=== PATIENT | female | born 1955 | race Caucasian/White ===

== ENCOUNTER → 2017-06-19 | Outpatient (CLI) | payer BC ==
[~2017-06-19] MED LIST: ALBUTEROL0.09 MG/A3 IH; ASPI81EC86; CLARITIN D TAB1 TAB PO; FLONASE0.05 MG/AC NS; METROLOTION 5959 ML TP
== END ==
LOC: COL.RAD 13:13
DX: M79.644 Pain in right finger(s) (principal)
CPT/HCPCS: J3301; Q9967

== ENCOUNTER 2017-10-11 06:51 | Day surgery (SDC) | payer BC ==
[~2017-10-11] VITALS: Ht 154.9 cm; Wt 61.4 kg
[~2017-10-11 06:51] MED LIST changes: -ALBUTEROL0.09 MG/A3 IH; -FLONASE0.05 MG/AC NS; +FLONASEALLERGY NS; +PROAIR HFA0.09 MG/AC IH
[2017-10-11] MEDS ORDERED: LEXAPRO 10MG10 MG PO (07:33)
[2017-10-11] MEDS ORDERED: OSCAL 500 TAB500 MG PO (07:34)
[2017-10-11] MEDS ORDERED: VITAMIN D 400400 IU PO (07:34)
[2017-10-11 07:35] VITALS: BP 141/75; PULSE 100; TEMP 98.6
[2017-10-11 09:09] VITALS: BP 118/69; PULSE 82; TEMP 98.4
[2017-10-11 09:24] VITALS: BP 121/79; PULSE 78
[2017-10-11 09:39] VITALS: BP 126/71; PULSE 81
== END 2017-10-11 09:50 | disposition home or self-care (01) ==
LOC: SDCO 06:51
DX: Z12.11 Encounter for screening for malignant neoplasm of colon (principal); K63.5 Polyp of colon; K57.30 Diverticulosis of large intestine without perforation or abscess without bleeding; D50.9 Iron deficiency anemia, unspecified; J45.909 Unspecified asthma, uncomplicated; Z90.710 Acquired absence of both cervix and uterus; Z86.010 Personal history of colon polyps; Z80.0 Family history of malignant neoplasm of digestive organs
CPT/HCPCS: J2250; J2405; J3010; J7030

== ENCOUNTER → 2018-05-21 | Outpatient (CLI) | payer BC ==
[~2018-05-21] MED LIST changes: +LEXAPRO 10MG10 MG PO; +OSCAL 500 TAB500 MG PO; +VITAMIN D 400400 IU PO
== END ==
LOC: MC.RAD 13:20
DX: Z12.31 Encounter for screening mammogram for malignant neoplasm of breast (principal)

== ENCOUNTER → 2019-03-05 | Outpatient (CLI) | payer BC | LOC: COL.RAD 08:00 | DX: M18.9 Osteoarthritis of first carpometacarpal joint, unspecified (principal) | CPT/HCPCS: J3301; Q9967 ==

== ENCOUNTER → 2019-05-28 | Outpatient (CLI) | payer BC | LOC: MC.RAD 07:04 | DX: Z12.31 Encounter for screening mammogram for malignant neoplasm of breast (principal) ==

== ENCOUNTER → 2020-06-23 | Outpatient (CLI) | payer BC | LOC: MC.RAD 12:51 | DX: Z12.31 Encounter for screening mammogram for malignant neoplasm of breast (principal) ==

== ENCOUNTER 2021-04-28 08:15 | Outpatient (RCR) | payer OTHER | END 2021-04-28 08:32 | disposition home or self-care (01) | LOC: MKS.ESL.PT 08:15 | DX: H81.11 Benign paroxysmal vertigo, right ear (principal) ==

== ENCOUNTER → 2021-07-14 | Outpatient (CLI) | payer BC | LOC: MC.RAD 10:34 | DX: Z12.31 Encounter for screening mammogram for malignant neoplasm of breast (principal) ==